=== PATIENT | female | born 1980 | race Caucasian/White ===

== ENCOUNTER 2018-08-27 09:00 | Observation (INO) | payer BC, SELFPAY ==
[2018-08-27 09:13] VITALS: BMI 22.2
[2018-08-27 09:14] VITALS: BP 103/67; PULSE 73; RESP 18; TEMP 36.9; O2SAT 100
--- NOTE | 2018-08-27 09:48 | US_ITS ---
STUDY: ULTRASOUND TRANSVAGINAL CLINICAL: Female, 38 years old. Right ovarian cyst TECHNIQUE: Transvaginal COMPARISON: None FINDINGS: Normal uterine size measuring 10.4 x 7.4 x 5.5 cm in maximal craniocaudal dimension. There are no myometrial masses. Normal endometrial thickness measuring 7 mm. There are no endometrial masses, and there is no fluid in the endometrial cavity. Normal uterine cervix. Normal right ovary, measuring 7.2 x 5.6 x 4.1 cm. There is a cyst measuring 2 x 2 by 2.1 cm. There also appears to be a smaller complex cyst possibly hemorrhagic. Normal left ovary is not visualized status post hysterectomy. There is moderate free complex fluid in the pelvis. US/Pelvic (Non ) IMPRESSION: Small complex cyst in the right ovary which may be consistent with hemorrhagic cyst in association with complex fluid in the cul-de-sac possibly hemorrhagic. MRI would be useful for further evaluation if clinically warranted Status post left nephrectomy Electronically Signed: Marco Laguna MD at 16:25 EDT , Service support ,
[2018-08-27] MEDS: Dextrose 5%-Lactated Ringers 1,000 ML 125 ML IV (10:02)
[2018-08-27] MEDS: Acetaminophen 500 MG Tablet 1000 MG PO (10:02)
--- NOTE | 2018-08-27 10:15 | PCM.HP.STD ---
Problem List (1) Hemoperitoneum, nontraumatic Status: Acute History of Present Illness Date of Admission: 08/27/18 Chief Complaint: Abdominal pain The patient is a 38 year old F [with sudden onset of abdominal pain at 4pm yesterday. Pain accompanied by near syncopal episodes, nausea, and vomiting. LMP mid July. HCG testing negative at [facility]. Past Medical History Allergies No Known Allergies Allergy (Verified 08/27/18 09:18) Home Medications: Ambulatory Orders Medication Instructions Recorded Chromium/Herbal Complex No.238 1 each PO DAILY 08/27/18 [Green Tea Caplet] Ciprofloxacin HCl 500 mg PO BID 08/27/18 Cranberry 500 mg PO DAILY 08/27/18 Surgical History: - - oophorectomy for ovarian torsion age 14 Psychiatric History: No pertinent psych hx VP CARDIOVASCULAR History: - - regular menses, one early loss, oophorectomy age 14 due to ovarina torsion Lives: Spouse/ Significant Other Smoking Status: Never smoker Alcohol: None Drugs: None - *Family History Maternal History Items: No pertinent history Paternal History Items: No pertinent history Review of Systems Constitutional: Denies: Chills, Fever, Malaise Eyes: Denies: Blurred vision Cardiovascular: Reports: Syncope - near with painful spasms. Denies: Chest Pain, Chest Pressure, Chest Tightness, Edema Respiratory: Denies: Cough, Shortness of Breath, Shortness of breath upon exertion, Wheezing Gastrointestinal: Reports: Abdominal Pain - generalized including pelvis and upper abdomen, Nausea - with episodes of pain. Denies: Constipation, Diarrhea Gynecological: Denies: Breast symptoms, Vaginal bleeding Neurological: Denies: Blurred vision, Headaches Psychiatric: Denies: Anxiety, Depression Hematologic/ Lymphatic: Reports: Anemia - not in past but current VTE Information - Inpt Only VTE Present on Admission: No VTE Mechan Device Prophylaxis: None VTE Pharm Prophylaxis ordered?: No Reason prophylaxis not ordered:: Treatment Not Indicated Patient Problems: Active and Suspected Problems Hemoperitoneum, nontraumatic (Acute) Subjective: Appears uncomfortable sitting upright in bed to discomfort of lying down Objective: Afeb VSS - Physical Exam General: Alert, Oriented x3, Cooperative HEENT: Normocephalic Oral: Moist Mucosa Lungs: Clear to auscultation, Normal air movement Cardiovascular: Regular rate, Regular Rhythm Abdomen: Non-Distended, Passing Flatus, Guarding, Tender - generalized Extremities: No edema Skin: No rashes Neurological: Neuro grossly intact Psych/Mental Status: Normal Affect Vital Signs Temp Pulse Resp BP Pulse Ox 98.5 F 73 18 103/67 100 08/27/18 09:14 08/27/18 09:14 08/27/18 09:14 08/27/18 09:14 08/27/18 09:14 Oxygen Delivery Method Room Air Weight: 121 lb 7.595 oz Body Mass Index (BMI) 22.2 Assessment/Plan All Active Problems Hemoperitoneum, nontraumatic (Acute) CT scan with likely hemoperitoneum with anemia and pain with possible ruptured corpus luteum cyst. Will admit for serial hgb levels to assess for further bleeding. Will treat pain with narcotics for now and consider antiinflammatories once results of US return. Pelvic US to better assess ovarian cyst and extent of hemoperitoneum. May need exploratory laparoscopy for evacuation of hemoperitoneum.
[2018-08-27] MEDS: HYDROmorphone 1 MG/ML Syringe IV (10:58)
[2018-08-27] MEDS: Ondansetron 4 MG/2 ML Vial IV (10:59)
[2018-08-27] MEDS: 0.9% NaCl Peripheral Flush Adult/Peds IV (10:59)
[2018-08-27 11:28] LABS: Absolute Lymphocyte Count 1.13 X10^3/ul (0.83-4.51); Absolute Neutrophil Count 8.3 X10^3/uL (2.0-7.7); Basophil# 0.02 X10^3/uL; Basophil% 0.2 % (0-1); Hematocrit 25.7 % (37-47); Hemoglobin 8.5 g/dl (12.0-15.0); Lymphocyte # 1.13 X10^3/ul (4.0); Lymphocyte % 11.4 % (19-41); Mean Corp Hgb Conc 33.1 g/gl (32-36); Mean Corpuscular Hgb 28.6 pg (27.0-32.0); Mean Corpuscular Volume 86.5 fL (81-99); Mean Platelet Vol. 9.5 fl (6.2-12.0); Monocyte# 0.45 X10^3/uL; Monocyte% 4.6 % (0-10); Neutrophil # 8.27 X10^3/uL (2.7-7.7); Neutrophil % 83.8 % (47-70); Platelet Count 189 K/mm3 (150-450); RBC Distribution Width CV 12.9 % (11.6-14.6); RBC Distribution Width SD 41.2 fl (35.1-43.9); Red Blood Count 2.97 M/mm3 (4.2-5.4); White Blood Count 9.9 K/mm3 (4.4-11.0)
[2018-08-27 11:29] LABS: POSITIVE COUNT NO; POSITIVE DIFFERENTIAL NO; POSITIVE MORPHOLOGY NO
[2018-08-27 11:53] LABS: hCG Titer Quant., Serum < 1 mIU/mL (<9 non-preg)
[2018-08-27 14:02] VITALS: BP 97/67; PULSE 70; RESP 18; TEMP 37.4; O2SAT 99
[2018-08-27] MEDS: Ciprofloxacin 500 MG Tablet PO ×2 (14:05→21:46)
--- NOTE | 2018-08-27 15:26 | US_ITS ---
STUDY: ULTRASOUND TRANSVAGINAL CLINICAL: Female, 38 years old. Right ovarian cyst TECHNIQUE: Transvaginal COMPARISON: None FINDINGS: Normal uterine size measuring 10.4 x 7.4 x 5.5 cm in maximal craniocaudal dimension. There are no myometrial masses. Normal endometrial thickness measuring 7 mm. There are no endometrial masses, and there is no fluid in the endometrial cavity. Normal uterine cervix. Normal right ovary, measuring 7.2 x 5.6 x 4.1 cm. There is a cyst measuring 2 x 2 by 2.1 cm. There also appears to be a smaller complex cyst possibly hemorrhagic. Normal left ovary is not visualized status post hysterectomy. There is moderate free complex fluid in the pelvis. US/Transvaginal Non- IMPRESSION: Small complex cyst in the right ovary which may be consistent with hemorrhagic cyst in association with complex fluid in the cul-de-sac possibly hemorrhagic. MRI would be useful for further evaluation if clinically warranted Status post left nephrectomy Electronically Signed: Marco Laguna MD at 16:25 EDT , Service support ,
[2018-08-27] MEDS: oxyCODONE 5 MG Tablet PO (16:24)
[2018-08-27] MEDS: Dextrose 5%-Lactated Ringers 1,000 ML 50 ML IV (20:10)
[2018-08-27 20:12] VITALS: BP 96/58; PULSE 86; RESP 18; TEMP 36.8; O2SAT 98
[2018-08-28 00:32] VITALS: BP 91/53; PULSE 87; RESP 16; TEMP 37; O2SAT 98
[2018-08-28 04:55] VITALS: BP 95/57; PULSE 94; RESP 18; TEMP 36.8; O2SAT 97
[2018-08-28 06:21] LABS: Absolute Lymphocyte Count 1.75 X10^3/ul (0.83-4.51); Absolute Neutrophil Count 4.5 X10^3/uL (2.0-7.7); Basophil# 0.01 X10^3/uL; Basophil% 0.1 % (0-1); Eosinophil# 0.06 X10^3/uL; Eosinophils% 0.9 % (0-5); Hematocrit 24.3 % (37-47); Hemoglobin 7.8 g/dl (12.0-15.0); Lymphocyte # 1.75 X10^3/ul (4.0); Lymphocyte % 25.5 % (19-41); Mean Corp Hgb Conc 32.1 g/gl (32-36); Mean Corpuscular Hgb 29.1 pg (27.0-32.0); Mean Corpuscular Volume 90.7 fL (81-99); Mean Platelet Vol. 10.5 fl (6.2-12.0); Monocyte# 0.55 X10^3/uL; Neutrophil # 4.48 X10^3/uL (2.7-7.7); Neutrophil % 65.4 % (47-70); Platelet Count 178 K/mm3 (150-450); RBC Distribution Width CV 12.5 % (11.6-14.6); RBC Distribution Width SD 40.4 fl (35.1-43.9); Red Blood Count 2.68 M/mm3 (4.2-5.4); White Blood Count 6.9 K/mm3 (4.4-11.0)
[2018-08-28 06:23] LABS: POSITIVE COUNT NO; POSITIVE DIFFERENTIAL NO; POSITIVE MORPHOLOGY NO
--- NOTE | 2018-08-28 07:40 | PCM.PN.OB ---
Patient Problems: Active and Suspected Problems Hemoperitoneum, nontraumatic (Acute) Subjective: Pain better this morning with more sense of soreness and fullness. Able to tolerate PO. Objective: Afeb VSS Hgb relatively stable at 7.8 today. - Physical Exam General: Alert, Oriented x3, Cooperative Lungs: Clear to auscultation, Normal air movement Cardiovascular: Regular rate, Regular Rhythm Abdomen: Soft, Non-Distended, - - Mild tenderness on exam but no guarding Extremities: No edema Skin: No rashes Neurological: Neuro grossly intact Psych/Mental Status: Normal Affect Vital Signs Temp Pulse Resp BP Pulse Ox 98.3 F 94 18 95/57 L 97 08/28/18 04:55 08/28/18 04:55 08/28/18 04:55 08/28/18 04:55 08/28/18 04:55 Oxygen Delivery Method Room Air Weight: 121 lb 7.595 oz Body Mass Index (BMI) 22.2 Intake and Output for Last 24 Hours 08/26/18 08/27/18 08/28/18 23:59 23:59 23:59 Intake Total 2067 1245 / 1245 Output Total 1600 / 1600 Balance 2067 -355 / -355 Laboratory Tests Past 24 Hrs 08/27/18 08/27/18 08/27/18 11:14 11:14 11:14 WBC 9.9 RBC 2.97 L Hgb 8.5 L Hct 25.7 L MCV 86.5 MCH 28.6 MCHC 33.1 RDW 12.9 RDW Differential 41.2 Plt Count 189 MPV 9.5 Immature Gran % (Auto) 0.000 Neut % (Auto) 83.8 H Lymph % (Auto) 11.4 L [place] % (Auto) 4.6 Eos % (Auto) 0.0 Baso % (Auto) 0.2 Absolute Neuts (auto) 8.3 H Absolute Lymphs (auto) 1.13 Total Counted Not Reportable HCG, Quant < 1 Blood Type O POSITIVE Antibody Screen NEGATIVE 08/28/18 05:52 WBC 6.9 RBC 2.68 L Hgb 7.8 L Hct 24.3 L MCV 90.7 MCH 29.1 MCHC 32.1 RDW 12.5 RDW Differential 40.4 Plt Count 178 MPV 10.5 Immature Gran % (Auto) 0.100 Neut % (Auto) 65.4 Lymph % (Auto) 25.5 [place] % (Auto) 8.0 Eos % (Auto) 0.9 Baso % (Auto) 0.1 Absolute Neuts (auto) 4.5 Absolute Lymphs (auto) 1.75 Total Counted Not Reportable HCG, Quant Blood Type Antibody Screen Medical Necessity - Tobacco Use Smoking Status: Never smoker Assessment/Plan All Active Problems Hemoperitoneum, nontraumatic (Acute) Ruptured hemorrhagic ovarian cyst. Hgb stable with normal BP HR . Pain much better today. Discussed low hgb and indications for return to the hospital or office. Will discharge home with followup appt in my office in 2 weeks. Oxycodone and ibuprofen for pain. Will start on supplemental iron.
--- NOTE | 2018-08-28 07:49 | DCINST_ITS ---
- Discharge Diagnoses Current Active Problems: Current Active and Chronic Problems Hemoperitoneum, nontraumatic (Acute) You will use the following diet at home:: Regular Your food should be the consistency of: Regular Discharge Activity: Return to Normal Activity, May Drive, May not drive while taking narcotic pain medications., May Shower, May Take a Tub Bath Return to work on:: 09/01/18 May shower in (days): 0 May resume sexual activity in: 2 weeks Call your doctor if your incision/area has: Increased Pain/ Swelling Call your doctor if you observe: Fever of 101 or Higher, Inability to urinate, Inability to have a bowel movement, Using more than one pad per hour, Shortness of breath, Dizziness, Fainting spells, Chest pain, Calf discomfort, Uncontrolled pain Allergies/Adverse Reactions: Allergies No Known Allergies Allergy (Verified 08/27/18 09:18) Medications to take at Discharge Chromium/Herbal Complex No.238 [Green Tea Caplet] 1 each PO DAILY 08/27/18 Ciprofloxacin HCl 500 mg PO BID 08/27/18 Cranberry 500 mg PO DAILY 08/27/18 Ciprofloxacin [Cipro] 500 mg PO BID tablet 08/28/18 Ferrous Gluconate 325 mg PO BIDCM #60 tab 08/28/18 Ibuprofen 600 mg PO 4X/DAY #30 tab 08/28/18 Oxycodone [Oxyir] 5 mg PO Q4H PRN PRN 7 Days #20 tab 08/28/18 The following prescriptions were given: Oxycodone [Oxyir] 5 mg PO Q4H PRN PRN 7 Days #20 tab PRN Reason: Severe Pain (6-08/27) Ferrous Gluconate 325 mg PO BIDCM #60 tab Ibuprofen 600 mg PO 4X/DAY #30 tab Primary Care Physician: Natalia Cooper [Primary Care Provider] - Test Results: Test results from this visit will be discussed in further detail at your follow- up appointment, if applicable. Please Follow Up With: Henrik Carroll MD - [phone] When: call to schedule appt for two weeks Proposed Discharge Date: 08/28/18
--- NOTE | 2018-08-28 07:53 | DS.PCM_ITS ---
Discharge Date and Diagnosis - Problem List Patient Problems: Active and Suspected Problems Hemoperitoneum, nontraumatic (Acute) Date of Admission: 08/27/18 Date of Discharge: 08/28/18 - Primary Discharge Diagnosis Active and Suspected Problems Hemoperitoneum, nontraumatic (Acute), Hemorrhagic ovarian cyst Hospital Course and Treatment Operations: None Procedures: - - US Summary of Care Provided: The patient is a 38 year old F [admitted with abdominal pain and CT scan showing likely hemoperitoneum. US confirmed diagnosis. Hgb stable during hospital stay. Anemia present. Pain lessoned over the course of 24 hours. Did well on low doses of oxycodone and tylenol. She was discharged home with warnings on HD #2.] Patient Problems: Active and Suspected Problems Hemoperitoneum, nontraumatic (Acute) - Physical Exam Vital Signs Temp Pulse Resp BP Pulse Ox 98.3 F 94 18 95/57 L 97 08/28/18 04:55 08/28/18 04:55 08/28/18 04:55 08/28/18 04:55 08/28/18 04:55 Oxygen Delivery Method Room Air Weight: 121 lb 7.595 oz Body Mass Index (BMI) 22.2 Intake and Output for Last 24 Hours 08/26/18 08/27/18 08/28/18 23:59 23:59 23:59 Intake Total 2067 1245 / 1245 Output Total 1600 / 1600 Balance 2067 -355 / -355 Laboratory Tests Past 24 Hrs 08/27/18 08/27/18 08/27/18 11:14 11:14 11:14 WBC 9.9 RBC 2.97 L Hgb 8.5 L Hct 25.7 L MCV 86.5 MCH 28.6 MCHC 33.1 RDW 12.9 RDW Differential 41.2 Plt Count 189 MPV 9.5 Immature Gran % (Auto) 0.000 Neut % (Auto) 83.8 H Lymph % (Auto) 11.4 L [place] % (Auto) 4.6 Eos % (Auto) 0.0 Baso % (Auto) 0.2 Absolute Neuts (auto) 8.3 H Absolute Lymphs (auto) 1.13 Total Counted Not Reportable HCG, Quant < 1 Blood Type O POSITIVE Antibody Screen NEGATIVE 08/28/18 05:52 WBC 6.9 RBC 2.68 L Hgb 7.8 L Hct 24.3 L MCV 90.7 MCH 29.1 MCHC 32.1 RDW 12.5 RDW Differential 40.4 Plt Count 178 MPV 10.5 Immature Gran % (Auto) 0.100 Neut % (Auto) 65.4 Lymph % (Auto) 25.5 [place] % (Auto) 8.0 Eos % (Auto) 0.9 Baso % (Auto) 0.1 Absolute Neuts (auto) 4.5 Absolute Lymphs (auto) 1.75 Total Counted Not Reportable HCG, Quant Blood Type Antibody Screen Discharge Diet: No Restrictions Discharge Activity: Return to Normal Activity, May Drive, May not drive while taking narcotic pain medications., May Shower, May Take a Tub Bath Return to work on:: 09/01/18 May shower in (days): 0 May resume sexual activity in: 2 weeks Call your doctor if your incision/area has: Increased Pain/ Swelling Call your doctor if you observe: Fever of 101 or Higher, Inability to urinate, Inability to have a bowel movement, Using more than one pad per hour, Shortness of breath, Dizziness, Fainting spells, Chest pain, Calf discomfort, Uncontrolled pain Home Medications: Medications to take at Discharge Chromium/Herbal Complex No.238 [Green Tea Caplet] 1 each PO DAILY 08/27/18 Ciprofloxacin HCl 500 mg PO BID 08/27/18 Cranberry 500 mg PO DAILY 08/27/18 Ciprofloxacin [Cipro] 500 mg PO BID tablet 08/28/18 Ferrous Gluconate 325 mg PO BIDCM #60 tab 08/28/18 Ibuprofen 600 mg PO 4X/DAY #30 tab 08/28/18 Oxycodone [Oxyir] 5 mg PO Q4H PRN PRN 7 Days #20 tab 08/28/18 Following Prescrptions Were Given to Patient: Oxycodone [Oxyir] 5 mg PO Q4H PRN PRN 7 Days #20 tab PRN Reason: Severe Pain (-08/27) Ferrous Gluconate 325 mg PO BIDCM #60 tab Ibuprofen 600 mg PO 4X/DAY #30 tab Primary Care Physician: Natalia Cooper [Primary Care Provider] - Please Follow Up With: Henrik Carroll MD - [phone] When: call to schedule appt for two weeks Medical Necessity - Tobacco Use Smoking Status: Never smoker Meaningful Use Info Meaningful Use Diagnoses (Choose all that apply): None applicable
[2018-08-28 08:50] VITALS: BP 94/56; PULSE 86; RESP 16; TEMP 37.1; O2SAT 98
== END 2018-08-28 09:15 | disposition home or self-care (01) ==
PROVIDERS: Obstetrics & Gynecology; Admitting Provider Obstetrics & Gynecology; Family Provider Nurse Practitioner Adult Health; PCP Nurse Practitioner Adult Health; Referring Provider Obstetrics & Gynecology; Visit Provider Obstetrics & Gynecology
DX: K66.1 Hemoperitoneum (principal); N83.201 Unspecified ovarian cyst, right side; D64.9 Anemia, unspecified
CPT/HCPCS: 36415; 76830; 76856; 84702; 85025; 86850; 86900; 96374; 96375; 99218; A4216; G0378; G0379; J2405

== ENCOUNTER → 2018-09-11 14:22 | Outpatient (CLI) | payer BC, SELFPAY ==
[2018-09-11 15:53] LABS: Hematocrit 34.6 % (37-47); Mean Corp Hgb Conc 31.8 g/gl (32-36); Mean Corpuscular Hgb 28.7 pg (27.0-32.0); Mean Corpuscular Volume 90.3 fL (81-99); Mean Platelet Vol. 10.4 fl (6.2-12.0); Platelet Count 301 K/mm3 (150-450); RBC Distribution Width CV 13.2 % (11.6-14.6); RBC Distribution Width SD 43.2 fl (35.1-43.9); Red Blood Count 3.83 M/mm3 (4.2-5.4); White Blood Count 6.8 K/mm3 (4.4-11.0)
[2018-09-11 15:57] LABS: Scan Indicated on CBC? Y/N NO
== END ==
PROVIDERS: Visit Provider Obstetrics & Gynecology
DX: D50.0 Iron deficiency anemia secondary to blood loss (chronic) (principal)
CPT/HCPCS: 36415; 85027

== ENCOUNTER 2019-10-04 10:54 | Observation (INO) | payer BC, SELFPAY ==
[2019-10-04 10:55] VITALS: BP 89/59; PULSE 112; RESP 18; TEMP 36.4; O2SAT 97; BMI 21.9
--- NOTE | 2019-10-04 11:14 | EKG12_ITS ---
Test Reason : SYNCOPE Blood Pressure : / mmHG Vent. Rate : 091 BPM Atrial Rate : 091 BPM P-R Int : 130 ms QRS Dur : 070 ms QT Int : 370 ms P-R-T Axes : 070 058 048 degrees QTc Int : 455 ms Normal sinus rhythm with sinus arrhythmia Normal ECG Confirmed by GERALDINE MATTHEWS, HOLLEY ([id number]), newspaper editor managing VINCENZO PASCUAL ([id number]) on 10/06/2019 11:41:13 AM Referred By: Gracie Canela Confirmed By:HOLLEY CHANDLER MD
--- NOTE | 2019-10-04 11:19 | NURSING ---
NO OLD EKGS
[2019-10-04] MEDS: fentaNYL 100 MCG/2 ML Ampul 25 MCG IV (11:38)
[2019-10-04] MEDS: 0.9% Normal Saline 1,000 ML 1000 ML IV (11:38)
[2019-10-04 11:40] LABS: Internal QC Validated? YES +Cl - CLEAR BKGD; Pregnancy, Serum, hCG Quali. NEGATIVE Negative
--- NOTE | 2019-10-04 11:40 | CT_ITS ---
We are attempting to reach an attending provider to discuss findings. An addendum with communication details will be sent when the communication is complete. STUDY: CT ABDOMEN AND PELVIS WITHOUT CONTRAST REASON FOR EXAM: Female, 39 years old. NAUSE/SYNCOPE,ABD PAIN. RADIATION DOSAGE (If Supplied By Facility): CTDIvol = ( 6.10 ) mGy, DLP = ( 288.06 ) mGycm TECHNIQUE: Transaxial images were obtained from the dome of the diaphragm to the symphysis pubis without oral contrast, and without intravenous contrast. Sagittal and coronal images were reconstructed. Individualized dose optimization techniques were used for this CT. COMPARISON: None FINDINGS: The visualized lung bases are unremarkable. The visualized portions of the heart are within normal limits. There is decreased attenuation of the liver consistent with steatosis. There is moderate amount fluid surrounding the liver, spleen and within pelvis. Some of this fluid is hyperdense in particular along the dependent pelvis and anterior abdomen. There is a mixed attenuation and predominantly hyperdense mass at the right pelvic adjacent to the uterus (axial image #128 series 2). Normal gallbladder and extrahepatic biliary system. Normal spleen. Normal pancreas. Normal bilateral adrenal glands. Normal right kidney. Normal left kidney. Normal visualized stomach. Normal small intestine. Normal colon. The appendix is visualized and appears normal. Normal abdominal aorta. Normal inferior vena cava. Normal retroperitoneum. Normal urinary bladder. Normal abdominal wall. Normal osseous structures. CT/Abdomen/Pelvis without Cont IMPRESSION: Mild hyperdense free fluid. Findings are consistent with intraperitoneal hemorrhage. Right pelvic mass. Electronically Signed: Rubin Jay MD at 13:00 EST Tel , Service support ,
[2019-10-04 11:47] LABS: AST(SGOT) 17 U/L (15-37); Alanine Aminotransfer ALT/SGPT 22 U/L (13-56); Albumin, Serum 3.8 g/dL (3.2-5.0); Alkaline Phosphatase 56 U/L (45-117); Anion Gap 10 (5-15); BUN 11 mg/dL (7-18); BUN/Creat Ratio 12.7 RATIO (10-20); Calcium,Total 8.9 mg/dL (8.5-10.1); Chloride 108 mmol/L (98-107); Creatinine, Serum 0.86 mg/dL (0.55-1.02); EST Glomerular Filtration Rate 77 mL/min (>60); Est Glom Filt Rate - Afr Amer 93 mL/min (>60); Estimated Creatinine Clearance 68.09 ml/min; Globulin 3.7 g/dL (2.2-4.2); Glucose 127 mg/dL (74-106); Potassium 4.4 mmol/L (3.5-5.1); Protein, Total 7.5 g/dL (6.4-8.2); Sodium Level 142 mmol/L (136-145)
[2019-10-04 11:55] LABS: Lipase 63 U/L (73-393); Prothrombin Time (Protime)PT. 13.2 SECONDS (11.7-14.9)
--- NOTE | 2019-10-04 12:13 | ED.DCSUM_ITS ---
History of Present Illness Informant: Patient Narrative: 1-year-old female presents with abdominal pain. Patient states that last night she began to have abdominal pain. Describes this sudden onset. Initially was in her lower abdomen and then started having worsening cramping pain in her upper abdomen. States that today she did have an episode of syncope when she fell and lost consciousness for short period of time. Patient's states that she did then quickly regained consciousness. Patient has a history of a left ovarian torsion that was removed in her teens. States that approximate year ago she had similar symptoms and was found to have a hemorrhagic cyst on her right ovary. Was observed at [facility] and then discharged. States that symptoms feel very similar to this. Last menstrual period was 09/13/2019 <Mick Gambino - Last Filed: 10/04/19 16:10> Onset: Yesterday Context: Gradual Onset Timing: Waxes and wanes Current Severity: Moderate Maximum Severity: Moderate <Carol Springer - Last Filed: 10/04/19 16:48> Chief Complaint: Abd Pain Past Medical History Surgical History: - - oophorectomy for ovarian torsion age 14 Smoking Status: Never smoker - Family History Maternal Family History: Reports: No pertinent history Paternal Family History: Reports: No pertinent history <Mick Gambino - Last Filed: 10/04/19 16:10> Prior records reviewed: Yes Past Medical History: - - Prior ovarian torsion Lives: Spouse/ Significant Other <Carol Springer - Last Filed: 10/04/19 16:48> - Allergies and Home Meds Allergies/Adverse Reactions: Allergies No Known Allergies Allergy (Verified 10/04/19 10:56) Review of Systems General: Denies: Chills, Fever, Sweats Eyes: Denies: Visual changes - bilaterally, Diplopia Cardiovascular: Denies: Chest pain, Palpitations Respiratory: Denies: Dyspnea, Cough, Dyspnea on exertion Gastrointestinal: Reports: Abdominal pain. Denies: Nausea, Vomiting, Diarrhea, Melena, Hematochezia Genitourinary: Denies: Dysuria, Hematuria, Frequency Musculoskeletal: Denies: Back pain, Extremity Pain Skin: Denies: Rash, Wounds Neurological: Denies: Headache, Weakness, Numbness <Mick Gambino - Last Filed: 10/04/19 16:10> Physical Exam Vital Signs/Narrative: Vital Signs Temp Pulse Resp BP Pulse Ox 10/04/19 10:55 97.5 F L 112 H 18 89/59 L 97 General: Well nourished, Well developed, No Acute Distress Head: Normocephalic, Atraumatic Eyes: Perrl, EOMI. Negative for: Pale conjunctiva ENT: Moist mucous membranes, No rhinorrhea Neck: Supple, Nontender Cardiovascular: Regular rate, Regular rhythm, No murmurs Respiratory: No distress, CTA bilaterally, Chest nontender Abdomen: Soft, Normal bowel sounds, - - His abdominal tenderness. Most pr ominent in the lower quadrants and bilateral upper quadrants. Back: Nontender, Normal Inspection Extremities: Nontender, No edema Skin: Normal color, No rash Neurological: Alert, Oriented x3, Cranial nerves II-XII grossly intact, Normal Strength, Normal Sensation Psychological: Normal affect, Normal Mood <Mick Gambino - Last Filed: 10/04/19 16:10> Inital Vital Signs reviewed: Yes <Carol Springer - Last Filed: 10/04/19 16:48> Diagnostic/Tx/Re-eval - EKG Initial EKG Interpretation: Sinus Rhythm - This rhythm at 91 bpm. KS interval 130, QRS 70, QTc 455. Normal axis. No ischemic changes. - Medical Decision Making Evaluated after syncope and abdominal pain. Initial concern will be for ruptured ectopic or ruptured hemorrhagic cyst. Serum negative. Bedside ultrasound positive for free fluid in the right upper quadrant. Patient given IV fluids, fentanyl for pain. Patient's vitals normalized when sitting in the ED cot. Labs unremarkable except for a mild anemia of 10.8. CT showed mild to moderate free fluid in the abdomen with likely hemorrhagic cyst in the right lower quadrant. I discussed the findings with the radiologist. Given patient's hemorrhagic cyst discussed case with who accepted the patient for admission to monitor. Impression: 1. Intra-abdominal free fluid, likely hemorrhagic cyst 2. Syncope 3. Blood loss anemia <Mick Gambino - Last Filed: 10/04/19 16:10> Impressions Abdomen/Pelvis CT 10/04/19 11:40 IMPRESSION: Mild hyperdense free fluid. Findings are consistent with intraperitoneal hemorrhage. Right pelvic mass. Electronically Signed: Rubin Jay MD at 13:00 EST Tel , Service support , ADDENDUM: 10/04/19 1350 IMPRESSION: Mild hyperdense free fluid. Findings are consistent with intraperitoneal hemorrhage. Right pelvic mass. N.B. : The above information has been verbally conveyed by Rubin Jay MD to Dr. Gambino;[phone], on 10/04/2019 13:43:16 (ET). Electronically Signed: Rubin Jay MD at 13:00 EST Tel , Service support , 10/04/19 11:40 CT Abd [Abdomen/Pelvis without Cont] [CT] Stat Laboratory Results 10/04/19 10/04/19 10/04/19 11:10 11:10 11:10 WBC RBC Hgb Hct MCV MCH MCHC RDW Std Deviation RDW Coeff of Hieu Plt Count MPV Immature Gran % (Auto) Neut % (Auto) Lymph % (Auto) [place]berry % (Auto) Eos % (Auto) Baso % (Auto) Absolute Neuts (auto) Absolute Lymphs (auto) Nucleated RBC % PT 13.2 INR 1.0 Sodium 142 Potassium 4.4 Chloride 108 H Carbon Dioxide 24.0 Anion Gap 10 BUN 11 Creatinine 0.86 Estim Creat Clear Calc 68.09 Est GFR (MDRD) Af Amer 93 Est GFR (MDRD) Non-Af 77 BUN/Creatinine Ratio 12.7 Glucose 127 H Calcium 8.9 Total Bilirubin 0.30 AST 17 ALT 22 Alkaline Phosphatase 56 Total Protein 7.5 Albumin 3.8 Globulin 3.7 Albumin/Globulin Ratio 1.0 Lipase Serum , Qual NEGATIVE Urine Color Urine Clarity Urine pH Ur Specific [place]ork Urine Protein Urine Glucose (UA) Urine Ketones Urine Occult Blood Urine Nitrite Urine Bilirubin Urine Urobilinogen Ur Leukocyte Esterase Urine RBC Urine WBC Ur Squamous Epith Cells Urine Bacteria Hyaline Casts Urine Mucus Blood Type Antibody Screen 10/04/19 10/04/19 10/04/19 11:10 11:10 11:10 WBC 14.7 H RBC 3.74 L Hgb 10.6 L Hct 33.3 L MCV 89.0 MCH 28.3 MCHC 31.8 L RDW Std Deviation 41.8 RDW Coeff of Hieu 12.8 Plt Count 332 MPV 9.9 Immature Gran % (Auto) 0.600 Neut % (Auto) 88.8 H Lymph % (Auto) 7.9 L Newberry % (Auto) 2.4 Eos % (Auto) 0.0 Baso % (Auto) 0.3 Absolute Neuts (auto) 13.1 H Absolute Lymphs (auto) 1.16 Nucleated RBC % 0 PT INR Sodium Potassium Chloride Carbon Dioxide Anion Gap BUN Creatinine Estim Creat Clear Calc Est GFR (MDRD) Af Amer Est GFR (MDRD) Non-Af BUN/Creatinine Ratio Glucose Calcium Total Bilirubin AST ALT Alkaline Phosphatase Total Protein Albumin Globulin Albumin/Globulin Ratio Lipase 63 L Serum , Qual Urine Color Urine Clarity Urine pH Ur Specific [place] Urine Protein Urine Glucose (UA) Urine Ketones Urine Occult Blood Urine Nitrite Urine Bilirubin Urine Urobilinogen Ur Leukocyte Esterase Urine RBC Urine WBC Ur Squamous Epith Cells Urine Bacteria Hyaline Casts Urine Mucus Blood Type O POSITIVE Antibody Screen NEGATIVE 10/04/19 12:35 WBC RBC Hgb Hct MCV MCH MCHC RDW Std Deviation RDW Coeff of Hieu Plt Count MPV Immature Gran % (Auto) Neut % (Auto) Lymph % (Auto) Newberry % (Auto) Eos % (Auto) Baso % (Auto) Absolute Neuts (auto) Absolute Lymphs (auto) Nucleated RBC % PT INR Sodium Potassium Chloride Carbon Dioxide Anion Gap BUN Creatinine Estim Creat Clear Calc Est GFR (MDRD) Af Amer Est GFR (MDRD) Non-Af BUN/Creatinine Ratio Glucose Calcium Total Bilirubin AST ALT Alkaline Phosphatase Total Protein Albumin Globulin Albumin/Globulin Ratio Lipase Serum , Qual Urine Color Yellow Urine Clarity Sl. Cloudy Urine pH 6.0 Ur Specific [place]ork 1.020 Urine Protein 30 H Urine Glucose (UA) Normal Urine Ketones 50 H Urine Occult Blood 10 H Urine Nitrite Positive H Urine Bilirubin Negative Urine Urobilinogen 1 H Ur Leukocyte Esterase 100 H Urine RBC 0 SEEN Urine WBC 0-5 SEEN Ur Squamous Epith Cells 0-5 SEEN Urine Bacteria 3+ Hyaline Casts 0-5 SEEN Urine Mucus 1+ Blood Type Antibody Screen - Medical Decision Making Patient seen and evaluated with resident. Patient is a 39-year-old female with history of left ovarian torsion. She was admitted last year with a hemorrhagic ovarian cyst on the right. Patient developed pain in the lower abdomen last evening. She did have a brief syncopal episode this morning. On arrival to the emergency room patient was hypotensive and tachycardic. Was placed in the exam room and lying in bed vital signs did improve. She denies vomiting or diarrhea. She denies fever. Patient lying in bed no acute distress. Head and neck examination unremarkable. Heart regular rate and rhythm with heart rate in the 80s and 90s. Lung sounds are clear. Abdomen is soft with tenderness in the lower abdomen. There is no guarding at the time of my exam. Extremity examination is unremarkable. Skin examination was no rash or lesions. Bedside ultrasound was performed after the patient arrived and did reveal evidence of free fluid in the pelvis. CT flank was quickly obtained to evaluate for volume of blood. There is evidence of a right adnexal mass, may be hemorrhagic cyst. There is free fluid noted in the pelvis. Patient was discussed with BIOASSAYIST and patient is admitted for further evaluation and observation. <Carol Springer - Last Filed: 10/04/19 16:48> ED Disposition <Mick Gambino - Last Filed: 10/04/19 16:10> <Carol Springer - Last Filed: 10/04/19 16:48> - Plan for ED Patient: Disposition: Acute Care Hospital [facility] Diagnosis: Hemoperitoneum, nontraumatic
[2019-10-04 12:30] VITALS: BP 146/102; PULSE 124; RESP 22; O2SAT 98
[2019-10-04 12:32] LABS: Absolute Lymphocyte Count 1.16 X10^3/uL (0.83-4.51); Absolute Neutrophil Count 13.1 X10^3/uL (2.0-7.7); Basophil# 0.05 X10^3/uL; Basophil% 0.3 % (0-1); Hematocrit 33.3 % (37-47); Hemoglobin 10.6 g/dL (12.0-15.0); Lymphocyte # 1.16 X10^3/ul (4.0); Lymphocyte % 7.9 % (19-41); Mean Corp Hgb Conc 31.8 g/dL (32-36); Mean Corpuscular Hgb 28.3 pg (27.0-32.0); Mean Platelet Vol. 9.9 fl (6.2-12.0); Monocyte# 0.35 X10^3/uL; Monocyte% 2.4 % (0-10); NRBC Flagged by Analyzer 0 % (0-5); Neutrophil # 13.06 X10^3/uL (2.7-7.7); Neutrophil % 88.8 % (47-70); Platelet Count 332 K/mm3 (150-450); RBC Distribution Width CV 12.8 % (11.6-14.6); RBC Distribution Width SD 41.8 fl (35.1-43.9); Red Blood Count 3.74 M/mm3 (4.2-5.4); White Blood Count 14.7 K/mm3 (4.4-11.0)
[2019-10-04 12:42] LABS: Red Blood Cells-Urine 0 SEEN /hpf (0-5)
[2019-10-04 12:43] LABS: Color, Urine Yellow (Yellow); Glucose, Dipstick Normal (Normal); Ketone-Dipstick 50 mg/dl (Negative); Leukocyte Esterase-Dipstick 100 /ul (Negative); Nitrite-Dipstick Positive (Negative); Occult Blood-Urine 10 /ul (Negative); Protein-Dipstick 30 mg/dl (Negative); Urine Bilirubin Dipstick Negative (Negative); Urine Clarity Sl. Cloudy (Clear); Urine Urobilinogen 1 mg/dl (Normal)
[2019-10-04 12:52] LABS: Bacteria 3+ /hpf (None Seen); Hyaline Cast 0-5 SEEN /lpf (0-5); Mucous, Urine 1+ /hpf (<or=2+); Squamous Epithelial Cells - UA 0-5 SEEN /hpf (5-10); White Blood Cells 0-5 SEEN /hpf (0-5)
--- NOTE | 2019-10-04 13:19 | PCM.HPOB.BLA ---
History and Physical Date of Admission: 10/04/19 On 10/04/2019, Carol Ennis, a 39 year old female 0 0 1 0 0, presented to [facility] emergency dept with CC of abdominal pain starting last night after sudden onset. Pain started in lower abdomen and now spread to upper abdomen also. Syncopal episode at home. She was observed in Oct 2018 in patient at [facility] for similar episode and then went home without surgery. She was offered OCP to suppress future cysts at this time. Declined. Will reconsider this via discussions with her while in hospital. States some intermittent sharp cramping pain in upper abdomen. Notes pressure in upper abdomen with palpation of lower abdomen. Tolerating clears, liquids, some inc in discomfort / cramping upper abdomen with trial of eating fruit. States next period due in about 10 d. Monthly periods. LMP 09/13/19 -- cycle day 21. ALLERGIES: No Known Allergies MEDICATIONS HISTORY: Current medications prescribed by our practice are: 1. none. REVIEW OF SYSTEMS: GENERAL - Denies fever, or chills SKIN - Denies skin changes EYES - Denies visual changes EARS - Denies difficulty hearing NOSE - Denies nasal congestion or bleeding MOUTH - Denies sore throat or difficulty swallowing NECK - Denies pain or swelling RESPIRATORY - Denies shortness of breath or wheezing CARDIOVASCULAR - Denies palpitations or chest pain GASTROINTESTINAL - Denies nausea, vomiting, diarrhea, constipation GENITOURINARY - Denies dysuria, frequency of urination, incontinence of urine MUSCULOSKELETAL - Denies joint or muscle pain NEUROLOGICAL - Denies localized numbness or weakness PSYCHIATRIC - Denies depression or anxiety ENDOCRINE - Denies heat or cold intolerance, weight loss or gain HEMATO-IMMUNOLOGIC - Denies excessive bleeding with cuts PAST HISTORY: Breast/Ovarian/Colon Cancers - Denies Infections - Chicken pox Illnesses - none History of Abnormal PAPS - NO Hospitalizations - SHORT STAY OBSERVATION Oct 2018 for hemorrhagic ovarian cyst. SURGICAL HISTORY: 1. Left Oophorectomy age 14 Torsion MENSTRUAL HISTORY: LMP Known?- Definite Amount/Duration - 5-6 days, Regularity - Regular, Frequency - monthly days, LMP - 09/13/19, Age Onset Menarche - 10 FAMILY HISTORY: Mother - Type 2 Diabetes; Paternal Grandparent - Type 2 Diabetes; Paternal Grandparent - Heart Attack; SOCIAL HISTORY: Alcohol Use - socially Smoking - denies smoking Employer - Self Illicit Drug Use - denies use of street drugs Sexual Activity - Residence - Lives w/ Spouse-Sig Other Name - Grover Ennis Spouse-Sig Other Occupation - [employer] for [employer] Spouse-Sig Other Phone No - [phone] Children Name(s) - none Control - had vasectomy PHYSICAL EXAMINATION Sinus Rhythm - at 91 bpm Pulse 90 BP 119/82 CONSTITUTIONAL - NAD, well nourished, and well developed HEENT - Normocephalic, PERRLA, EOMI. Appears pink. NECK - no nuchal rigidity LUNGS - regular rate and respiratory rhythm. ABDOMEN - tender to palpation lower abdomen, no rebound. EXTREMITIES - No edema or calf tenderness NEUROLOGICAL - Cranial nerves II-XII grossly intact PSYCHIATRIC - A and O to time, place, person, mood and affect ASSESSMENT: 1. 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 Anemia, presumed due to acute blood loss. PLAN BY DIAGNOSIS: 1. 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 No description of size of ovary or of Right adnexal mass/clot. Admit to [facility] for serial CBCs, and exams with consideration of surgery if indicated. L ovary surgically absent. Discussed R,B,A, of hormonal contraception (OCP, NuvaRing, Xulane, Nexplanon, Depo Provera) to reduce risk of future cysts She is considering options again. Also discussed option to remove R ovary, but not recommended due to age and need for hormones. Pelvic sono to evaluate adnexa further. Hold diet to clears as tolerated. Add antispasmodic for intermittent pain Advised will decide re surgery depending on her serial CBC and on pain control. The visit was approximately 20 minutes in length with most of the time spent in discussion and counseling. 2. Anemia, presumed due to acute blood loss. Iron bid Also with known fibroids, hx of chronic anemia 2/2 heavy periods.
[2019-10-04] MEDS: fentaNYL 100 MCG/2 ML Ampul 50 MCG IV (13:28)
[2019-10-04 13:32] VITALS: BP 124/81; PULSE 90; RESP 22; O2SAT 98
--- NOTE | 2019-10-04 13:34 | NURSING ---
MED SURG ANEMIA, HEMORRHAGIC CYST GERTRUDIS
[2019-10-04 14:06] VITALS: BMI 21.5; BMI 21.8
[2019-10-04 14:38] VITALS: BP 119/82; PULSE 90; RESP 18; TEMP 36.3; O2SAT 99
[2019-10-04] MEDS: oxyCODONE 5 MG Tablet 10 MG PO (14:48)
[2019-10-04] MEDS: 0.9% Normal Saline 1,000 ML 75 ML IV (15:58)
[2019-10-04] MEDS: Hyoscyamine Sulfate 0.125 MG Tablet PO (16:01)
[2019-10-04] MEDS: Ferrous Sulfate 325 MG Tablet PO (16:01)
[2019-10-04 17:45] LABS: Hematocrit 27.3 % (37-47); Mean Corpuscular Hgb 28.6 pg (27.0-32.0); Mean Corpuscular Volume 86.7 fL (81-99); Mean Platelet Vol. 9.9 fl (6.2-12.0); Platelet Count 262 K/mm3 (150-450); RBC Distribution Width CV 12.9 % (11.6-14.6); RBC Distribution Width SD 41.1 fl (35.1-43.9); Red Blood Count 3.15 M/mm3 (4.2-5.4)
[2019-10-04 18:02] VITALS: BP 123/79; PULSE 93; RESP 16; TEMP 36.5; O2SAT 100
[2019-10-04] MEDS: Acetaminophen 325 MG Tablet 650 MG PO (18:08)
[2019-10-04] MEDS: HYDROmorphone 0.5 MG/0.5 ML SYRINGE IV (18:59)
[2019-10-04] MEDS: 0.9% Saline Lock 10 ML Syringe IV (20:25)
[2019-10-04] MEDS: Ondansetron 4 MG/2 ML Vial IV (20:25)
[2019-10-04 20:30] VITALS: BP 147/91; PULSE 98; RESP 16; TEMP 36.8; O2SAT 97
[2019-10-04] MEDS: Famotidine 20 MG Tablet PO (21:25)
[2019-10-05] VITALS (12 sets, daily range): BP systolic 95–119; BP diastolic 58–75; PULSE 73–96; RESP 16–18; TEMP 36.4–37.2; O2SAT 93–100; BMI 21.8
[2019-10-05] MEDS: HYDROmorphone 1 MG/ML Syringe IV ×2 (03:04→20:02)
[2019-10-05] MEDS: 0.9% Normal Saline 1,000 ML 75 ML IV (04:52)
[2019-10-05 06:15] LABS: Absolute Lymphocyte Count 1.71 X10^3/uL (0.83-4.51); Absolute Neutrophil Count 6.9 X10^3/uL (2.0-7.7); Basophil# 0.04 X10^3/uL; Basophil% 0.4 % (0-1); Eosinophil# 0.01 X10^3/uL; Eosinophils% 0.1 % (0-5); Hematocrit 24.1 % (37-47); Hemoglobin 7.7 g/dL (12.0-15.0); Lymphocyte # 1.71 X10^3/ul (4.0); Lymphocyte % 18.1 % (19-41); Mean Corpuscular Hgb 28.1 pg (27.0-32.0); Mean Platelet Vol. 9.8 fl (6.2-12.0); Monocyte# 0.73 X10^3/uL; Monocyte% 7.7 % (0-10); NRBC Flagged by Analyzer 0 % (0-5); Neutrophil # 6.91 X10^3/uL (2.7-7.7); Neutrophil % 73.3 % (47-70); Platelet Count 224 K/mm3 (150-450); RBC Distribution Width SD 41.1 fl (35.1-43.9); Red Blood Count 2.74 M/mm3 (4.2-5.4); White Blood Count 9.4 K/mm3 (4.4-11.0)
[2019-10-05 06:37] LABS: Anion Gap 8 (5-15); BUN 10 mg/dL (7-18); Calcium,Total 8.1 mg/dL (8.5-10.1); Chloride 106 mmol/L (98-107); Creatinine, Serum 0.71 mg/dL (0.55-1.02); EST Glomerular Filtration Rate 96 mL/min (>60); Est Glom Filt Rate - Afr Amer 116 mL/min (>60); Estimated Creatinine Clearance 82.47 ml/min; Glucose 89 mg/dL (74-106); Potassium 3.6 mmol/L (3.5-5.1); Sodium Level 140 mmol/L (136-145)
--- NOTE | 2019-10-05 08:25 | PCM.PROGNOTE ---
Patient Problems: Active and Suspected Problems Hemoperitoneum, nontraumatic (Acute) Subjective: HD#2 ruptured ovarian cyst, Acute blood loss anemia. hemoperitoneum Pain controlled with IV narcotic. Tolerating clears. Denies dizziness with ambulation to bathroom at last time up. - Physical Exam Vitals/I&O's: Vital Signs Temp Pulse Resp BP Pulse Ox 98.4 F 88 16 109/67 97 10/05/19 03:01 10/05/19 03:01 10/05/19 03:01 10/05/19 03:01 10/05/19 03:01 Oxygen Delivery Method Room Air Weight: 54.204 kg Body Mass Index (BMI) 21.8 Intake and Output for Last 24 Hours 10/03/19 10/04/19 10/05/19 23:59 23:59 23:59 Intake Total 1200 / 1800 1567.5 / 1567.5 Output Total 350 / 700 650 / 650 Balance 850 / 1100 917.5 / 917.5 General: Alert - appears more pale this am., Oriented x3, Cooperative, No apparent distress HEENT: Atraumatic, EOMI Neck: Supple Abdomen: Soft - tender mostly in lower abdomen. no guarding. Neurological: Cranial nerves II-XII grossly intact Psych/Mental Status: Normal Affect Laboratory Results 10/04/19 11:10: Sodium 142, Potassium 4.4, Chloride 108 H, Carbon Dioxide 24.0, Anion Gap 10, BUN 11, Creatinine 0.86, Estim Creat Clear Calc 68.09, Est GFR (MDRD) Af Amer 93, Est GFR (MDRD) Non-Af 77, BUN/Creatinine Ratio 12.7, Glucose 127 H, Calcium 8.9, Total Bilirubin 0.30, AST 17, ALT 22, Alkaline Phosphatase 56, Total Protein 7.5, Albumin 3.8, Globulin 3.7, Albumin/Globulin Ratio 1.0 10/04/19 11:10: Serum , Qual NEGATIVE 10/04/19 11:10: PT 13.2, INR 1.0 10/04/19 11:10: Lipase 63 L 10/04/19 11:10: Blood Type O POSITIVE, Antibody Screen NEGATIVE 10/04/19 11:10: WBC 14.7 H, RBC 3.74 L, Hgb 10.6 L, Hct 33.3 L, MCV 89.0, MCH 28.3, MCHC 31.8 L, RDW Std Deviation 41.8, RDW Coeff of Hieu 12.8, Plt Count 332, MPV 9.9, Immature Gran % (Auto) 0.600, Neut % (Auto) 88.8 H, Lymph % (Auto) 7.9 L, Crisp % (Auto) 2.4, Eos % (Auto) 0.0, Baso % (Auto) 0.3, Absolute Neuts (auto) 13.1 H, Absolute Lymphs (auto) 1.16, Nucleated RBC % 0 10/04/19 12:35: Urine Color Yellow, Urine Clarity Sl. Cloudy, Urine pH 6.0, Ur Specific [place] 1.020, Urine Protein 30 H, Urine Glucose (UA) Normal, Urine Ketones 50 H, Urine Occult Blood 10 H, Urine Nitrite Positive H, Urine Bilirubin Negative, Urine Urobilinogen 1 H, Ur Leukocyte Esterase 100 H, Urine RBC 0 SEEN, Urine WBC 0-5 SEEN, Ur Squamous Epith Cells 0-5 SEEN, Urine Bacteria 3+, Hyaline Casts 0-5 SEEN, Urine Mucus 1+ 10/04/19 17:30: WBC 11.0, RBC 3.15 L, Hgb 9.0 L, Hct 27.3 L, MCV 86.7, MCH 28.6, MCHC 33.0, RDW Std Deviation 41.1, RDW Coeff of Hieu 12.9, Plt Count 262, MPV 9.9 10/05/19 05:28: WBC 9.4, RBC 2.74 L, Hgb 7.7 L, Hct 24.1 L, MCV 88.0, MCH 28.1, MCHC 32.0, RDW Std Deviation 41.1, RDW Coeff of Hieu 13.0, Plt Count 224, MPV 9.8, Immature Gran % (Auto) 0.400, Neut % (Auto) 73.3 H, Lymph % (Auto) 18.1 L, Crisp % (Auto) 7.7, Eos % (Auto) 0.1, Baso % (Auto) 0.4, Absolute Neuts (auto) 6.9, Absolute Lymphs (auto) 1.71, Nucleated RBC % 0 10/05/19 05:28: Sodium 140, Potassium 3.6, Chloride 106, Carbon Dioxide 26.0, Anion Gap 8, BUN 10, Creatinine 0.71, Estim Creat Clear Calc 82.47, Est GFR (MDRD) Af Amer 116, Est GFR (MDRD) Non-Af 96, BUN/Creatinine Ratio 14.0, Glucose 89, Calcium 8.1 L Current Medications Acetaminophen (Tylenol) 650 mg PO Q6H PRN PRN PRN Reason: Pain Score 1-3/Temp > 100.7 F Last Admin: 10/04/19 18:08 Dose: 650 mg Documented by: Famotidine (Pepcid) 20 mg PO BID ON LICENSE OF [facility] Last Admin: 10/04/19 21:25 Dose: 20 mg Documented by: Ferrous Sulfate (Ferrous Sulfate) 325 mg PO 1200,1700 ON LICENSE OF [facility] Last Admin: 10/04/19 16:01 Dose: 325 mg Documented by: Hydromorphone HCl (Dilaudid Inj) 0.5 mg IV Q2H PRN PRN PRN Reason: Pain Score 4-5/10 Last Admin: 10/04/19 18:59 Dose: 0.5 mg Documented by: Hydromorphone HCl (Dilaudid Inj) 1 mg IV Q2H PRN PRN PRN Reason: Pain Score 6-10/10 Last Admin: 10/05/19 03:04 Dose: 1 mg Documented by: Hyoscyamine Sulfate (Levsin/Sl) 0.125 mg PO Q4H PRN PRN PRN Reason: SPASMS Last Admin: 10/04/19 16:01 Dose: 0.125 mg Documented by: Sodium Chloride () 250 mls @ 15 mls/hr IV .[id number] PRN PRN Reason: Saline Flush Sodium Chloride () 1,000 mls @ 75 mls/hr IV .[id number] ON LICENSE OF [facility] Last Admin: 10/05/19 04:52 Dose: 75 mls/hr Documented by: Ondansetron HCl (Zofran) 4 mg IV Q8H PRN PRN PRN Reason: NAUSEA/VOMITING Last Admin: 10/04/19 20:25 Dose: 4 mg Documented by: Oxycodone HCl (Oxyir) 10 mg PO Q4H PRN PRN PRN Reason: Pain Score 6-10/10 Last Admin: 10/04/19 14:48 Dose: 10 mg Documented by: Sodium Chloride () 10 - 40 ml IV UD PRN PRN Reason: SALINE FLUSH Last Admin: 10/04/19 20:25 Dose: 10 ml Documented by: Medical Necessity - Tobacco Use Smoking Status: Never smoker Assessment/Plan All Active Problems Hemoperitoneum, nontraumatic (Acute) HD#2 ruptured ovarian cyst, Acute blood loss anemia. hemoperitoneum AVSS denies dizziness with up out of bed. Further drift downward of H/H c/w continued slow blood loss Advised surgery to evacuate hemoperitoneum and to inspect for source of bleeding. Possible ovarian cystectomy. Possible oophorectomy . L ovary surgically absent 2/2 torsion years ago. Goal : ovarian preservation. Reviewed R/B/A of surgery and advised may or may not find source of bleeding, but surgery likely to improve pain with evacuation of hemoperitoneum. Will consent for L/S, and surgery as described. Discussed naticipated surgery and postop recovery All questions answered to patient satisfaction. NPO for surgery. OR aware and planning surgery today. Approx noon. Pt will begin Xulane patch after surgery to suppress ovulation.
[2019-10-05] MEDS: HYDROmorphone 0.5 MG/0.5 ML SYRINGE IV (10:48)
--- NOTE | 2019-10-05 11:08 | NURSING ---
report called to Susana in [facility] for pre-op
--- NOTE | 2019-10-05 12:00 | CYST_PTH ---
PATIENT: ELIA HENRY LOC: [facility] U#:[id number] AGE/SX: 39/F ROOM: MS312 RE10/04/[address]: Dr. Gracie Canela MD : 1980 BED: 1 DIS: 10/06/2019 SPEC #: [id number] RECD: 10/05/19 15:52 STATUS: NUVIA HEATHER #: [id number] OPAL: 10/05/19 12:[address]: Gracie Canela DEPT: SURGICAL PATHOLOGY RECD BY: Luke Marks ENTERED: 10/06/19 08:19 SP TYPE: Cyst OTHR DR: No Primary Care Phys Tissues: OVARIAN CYST Procedures: Surgery Specimen Level IV HEADER OPERATION: Evacuation of hematoma, ovarian cystotomy PRE-OP DIAGNOSIS: Neoplasm of right ovary; anemia TISSUE SUBMITTED: Right ovarian cyst MICROSCOPIC DIAGNOSIS Right ovarian cyst, cystotomy: Consistent with fragments of hemorrhagic corpus luteum cyst and blood clots. SJ:traci 10/07/19 MICROSCOPIC DESCRIPTION Slides are reviewed. GROSS DESCRIPTION Received in fixative is one container labeled with the patient's name and designated right ovarian cyst. The specimen consists of multiple fragments of lomeli hemorrhagic soft tissue that in aggregate measure 2.5 x 2.5 x 0.3 cm. The entire specimen is submitted in one cassette. / SUZIE:traci 10/06/19 TC:5 CPT: 28410
--- NOTE | 2019-10-05 12:27 | DCINST_ITS ---
- Discharge Diagnoses Current Active Problems: Current Active and Chronic Problems Hemoperitoneum, nontraumatic (Acute) You will use the following diet at home:: No restrictions Discharge Activity: May not drive while taking narcotic pain medications., May Shower, May Take a Tub Bath Return to work on:: 10/07/19 May resume sexual activity in: No Restrictions Weight Bearing Status: Weight bearing as tolerated Call your doctor if you observe: Fever of 101 or Higher, Inability to have a bowel movement, Using more than one pad per hour, Calf discomfort, Uncontrolled pain Cleanse incision/area with: Soap & Water, Keep Dressing Clean & Dry Additional Instructions: You may take Tylenol 500 mg tabs one or two every 6 hr as needed for milder pain. You may ADD either two Aleve tablets or Three Ibuprofen tablets by mouth every 8 hrs for moderate pain. Take OxyIR 5 mg by mouth every 6 hr for more severe pain. Allergies/Adverse Reactions: Allergies No Known Allergies Allergy (Verified 10/04/19 10:56) Medications to take at Discharge Chromium/Herbal Complex No.238 [Green Tea Caplet] 1 each PO DAILY 08/27/18 Docusate Sodium [Colace] 100 mg PO BID #30 cap 10/05/19 Oxycodone [Oxyir] 5 mg PO Q6H PRN PRN 4 Days #15 tablet 10/05/19 The following prescriptions were given: Docusate Sodium [Colace] 100 mg PO BID #30 cap Transmission Status: Pending to [id number] Oxycodone [Oxyir] 5 mg PO Q6H PRN PRN 4 Days #15 tablet PRN Reason: Mod-Severe Pain (-08/27) Transmission Status: Received by [id number] Primary Care Physician: Care Physician,No Primary [Primary Care Provider] - Test Results: Test results from this visit will be discussed in further detail at your follow- up appointment, if applicable. Please Follow Up With: Gracie Canela MD - [phone] When: in two weeks for postoperative follow up appointment. Proposed Discharge Date: 10/05/19
[2019-10-05] MEDS: Bupiv/Epi 0.25% 30 ML Vial (12:46)
--- NOTE | 2019-10-05 13:41 | PCM.OPRPT ---
Report of Operation Date of Procedure: 10/05/19 Pre-Operative Diagnosis: Hemoperitoneum, abdominal pain, acute blood loss anemia. Hemorrhagic R ovarian cyst Post-Operative Diagnosis: Same Surgery/Procedure Performed:: Laparoscopy, evacuation of hemoperitoneum Description of Surgical Findings:: Hemoperitoneum. 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 The patient was taken back to the Operating room with an IV running. she was positioned on the operating table in dorsal supine position, where she was given general anesthesia. Once asleep she was repositioned to the dorsal lithotomy position with arms tucked at the sides and prepped and draped in the usual sterile fashion. A red Gallo catheter was used to drain the bladder prior to initiating the case. The uterus was anteverted and anteflexed on exam under anesthesia. A sponge stick was placed into the vagina to allow manipulation of the uterus and cervix during the case. Attention was then turned to the anterior abdominal wall where 0.5 % Marcaine with epinephrine was instilled at the suprapubic and infraumbilical skin and at a point midway between in the midline. Skin incisions were then created in the midline at the suprapubic skin and at the infraumbilical skin and midway between the two. While maintaining upward traction of the anterior abdominal wall a Veress needle was inserted through the umbilical incision into the peritoneal cavity. There was free drop of saline, low opening pressure and free flow of CO2 noted. Once the intraabdominal pressure had reached 14 mm of mercury the Veress needle was removed and a bladeless 5 mm trocar was placed through infraumbilical skin incision into the peritoneal cavity. Correct placement was confirmed using the scope. Under direct visualization then with the patient in Trendelenburg position, a bladeless 5 mm trocar was inserted in through suprapubic skin incision into the peritoneal cavity and at a point midway between the infraumbilical and suprapubic trocars. The uterus as anteverted and the left fallopian tube and ovary were surgically absent. The R fallopian tube appeared normal and the right ovary appeared slightly enlarged, mobile, with a small defect at the posterior surface which was bleeding slightly. The posterior cul de sac was filled with blood and clot. This was aspirated and the pelvis irrigated and inspected again. The right ovary was grasped and manipulated to expose the cystic portion and a cystotomy was created. Additional bleeding was noted. The ovary was cauterized to hemostasis. Amber was applied to the ovary. Adequate hemostasis was noted. Attention was then turned to aspiration of blood from the upper abdomen near the liver where additional blood had pooled while the patient was in Trendelenburg position. The blood was aspirated. The patient was placed in reverse Trendelenburg position and additional blood and clot was aspirated from the posterior cul de sac. The ovary was again inspected. Adequate hemostasis was noted. Photos were taken of the uterus and the right ovary . At this point the the procedure was terminated. The pneumoperitoneum was reduced and the instruments and trocars were removed from he the anterior abdominal wall skin. The skin incisions were closed with 4-0 Monocryl in a subcuticular fashion. Dermabond was applied to the skin incisions as an occlusive dressing. The sponge stick was removed from the vagina. The patient was returned to dorsal supine position. She was awakened from general anesthesia. She was transferred to the recovery room bed in stable condition after tolerating the procedure well. Sponge, lap, needle and instrument counts were correct x two. Medications given preop and intraoperatively included: 10 cc of 1/2 % Marcaine with epinephrine --used as a subcutaneous block . For a complete listing of medications given preop and intraop , please see the anesthesia record. - Admit VTE Documentation VTE Present on Admission: No VTE Mechan Device Prophylaxis: SCD's VTE Pharm Prophylaxis ordered?: No
[2019-10-05] MEDS: Lactated Ringers 1,000 ML 100 ML IV (14:54)
[2019-10-05 15:44] LABS: Hematocrit 24.2 % (37-47); Hemoglobin 7.8 g/dL (12.0-15.0); Mean Corp Hgb Conc 32.2 g/dL (32-36); Mean Corpuscular Hgb 28.8 pg (27.0-32.0); Mean Corpuscular Volume 89.3 fL (81-99); Mean Platelet Vol. 10.1 fl (6.2-12.0); Platelet Count 199 K/mm3 (150-450); Red Blood Count 2.71 M/mm3 (4.2-5.4)
[2019-10-05] MEDS: oxyCODONE 5 MG Tablet 10 MG PO (18:13)
[2019-10-05] MEDS: Famotidine 20 MG Tablet PO ×2 (18:13→21:27)
[2019-10-05] MEDS: Ferrous Sulfate 325 MG Tablet PO (18:13)
[2019-10-05 18:50] LABS: Hematocrit 24.4 % (37-47); Hemoglobin 7.9 g/dL (12.0-15.0); Mean Corp Hgb Conc 32.4 g/dL (32-36); Mean Corpuscular Hgb 28.8 pg (27.0-32.0); Mean Corpuscular Volume 89.1 fL (81-99); Mean Platelet Vol. 9.9 fl (6.2-12.0); Platelet Count 211 K/mm3 (150-450); RBC Distribution Width CV 12.9 % (11.6-14.6); RBC Distribution Width SD 41.8 fl (35.1-43.9); Red Blood Count 2.74 M/mm3 (4.2-5.4); White Blood Count 9.4 K/mm3 (4.4-11.0)
[2019-10-06] MEDS: oxyCODONE 5 MG Tablet 10 MG PO (00:16)
[2019-10-06] MEDS: Lactated Ringers 1,000 ML 100 ML IV (00:17)
[2019-10-06 02:32] VITALS: BP 106/59; PULSE 90; RESP 16; TEMP 36.6; O2SAT 96
[2019-10-06] MEDS: Ibuprofen 600 MG Tablet PO ×2 (05:24→12:34)
[2019-10-06 07:03] LABS: Absolute Lymphocyte Count 1.25 X10^3/uL (0.83-4.51); Absolute Neutrophil Count 5.9 X10^3/uL (2.0-7.7); Basophil# 0.02 X10^3/uL; Basophil% 0.3 % (0-1); Eosinophil# 0.11 X10^3/uL; Eosinophils% 1.4 % (0-5); Hematocrit 22.9 % (37-47); Hemoglobin 7.2 g/dL (12.0-15.0); Lymphocyte # 1.25 X10^3/ul (4.0); Lymphocyte % 15.6 % (19-41); Mean Corp Hgb Conc 31.4 g/dL (32-36); Mean Corpuscular Hgb 28.1 pg (27.0-32.0); Mean Corpuscular Volume 89.5 fL (81-99); Mean Platelet Vol. 10.4 fl (6.2-12.0); Monocyte# 0.66 X10^3/uL; Monocyte% 8.3 % (0-10); NRBC Flagged by Analyzer 0 % (0-5); Neutrophil # 5.94 X10^3/uL (2.7-7.7); Neutrophil % 74.1 % (47-70); POSITIVE MORPHOLOGY YES; Platelet Count 209 K/mm3 (150-450); RBC Distribution Width CV 12.7 % (11.6-14.6); RBC Distribution Width SD 41.7 fl (35.1-43.9); Red Blood Count 2.56 M/mm3 (4.2-5.4)
[2019-10-06 07:36] LABS: Differential Indicated SCAN CRITERIA MET
--- NOTE | 2019-10-06 08:29 | PN_ITS ---
Patient Problems: Active and Suspected Problems Hemoperitoneum, nontraumatic (Acute) Subjective: POD#1 Laparoscopy, evacuation of hemoperitoneum. R ovarian cystectotomy, hemorrhagic ovarian cyst. Doing well. Upper abdominal pain is gone. Lower abdomen sore. Taking PO meds well. no N/V. Tolerated a frosty last night. - Physical Exam Vitals/I&O's: Vital Signs Temp Pulse Resp BP Pulse Ox 97.8 F 90 16 106/59 L 96 10/06/19 02:32 10/06/19 02:32 10/06/19 02:32 10/06/19 02:32 10/06/19 02:32 Oxygen Flow Rate (L/min) 3 Oxygen Delivery Method Room Air Weight: 54.204 kg Body Mass Index (BMI) 21.8 Intake and Output for Last 24 Hours 10/04/19 10/05/19 10/06/19 23:59 23:59 23:59 Intake Total 1200 / 1800 4142.5 / 4142.5 1773.33 / 1773.33 Output Total 350 / 700 1690 / 1690 700 / 700 Balance 850 / 1100 2452.5 / 2452.5 1073.33 / 1073.33 General: Alert, Oriented x3, Cooperative, No apparent distress HEENT: Atraumatic, EOMI Neck: Supple Abdomen: Soft - flat minimally sore c/w postop status (lower abdomen) Skin: Incision - L/S incisions with skin glue, CDI. no ecchymosis noted Psych/Mental Status: Normal Affect Laboratory Results 10/05/19 15:30: WBC 10.0, RBC 2.71 L, Hgb 7.8 L, Hct 24.2 L, MCV 89.3, MCH 28.8, MCHC 32.2, RDW Std Deviation 42.0, RDW Coeff of Hieu 13.0, Plt Count 199, MPV 10.1 10/05/19 18:40: WBC 9.4, RBC 2.74 L, Hgb 7.9 L, Hct 24.4 L, MCV 89.1, MCH 28.8, MCHC 32.4, RDW Std Deviation 41.8, RDW Coeff of Hieu 12.9, Plt Count 211, MPV 9.9 10/06/19 05:58: WBC 8.0, RBC 2.56 L, Hgb 7.2 L, Hct 22.9 L, MCV 89.5, MCH 28.1, MCHC 31.4 L, RDW Std Deviation 41.7, RDW Coeff of Hieu 12.7, Plt Count 209, MPV 10.4, Immature Gran % (Auto) 0.300, Neut % (Auto) 74.1 H, Lymph % (Auto) 15.6 L, [place] % (Auto) 8.3, Eos % (Auto) 1.4, Baso % (Auto) 0.3, Absolute Neuts (auto) 5.9, Absolute Lymphs (auto) 1.25, Nucleated RBC % 0 Current Medications Acetaminophen (Tylenol) 650 mg PO Q6H PRN PRN PRN Reason: Pain Score 1-3/Temp > 100.7 F Last Admin: 10/04/19 18:08 Dose: 650 mg Documented by: Famotidine (Pepcid) 20 mg PO BID [facility] Last Admin: 10/05/19 21:27 Dose: 20 mg Documented by: Ferrous Sulfate (Ferrous Sulfate) 325 mg PO 1200,1700 [facility] Last Admin: 10/05/19 18:13 Dose: 325 mg Documented by: Hydromorphone HCl (Dilaudid Inj) 0.5 mg IV Q2H PRN PRN PRN Reason: Pain Score 4-5/10 Last Admin: 10/05/19 10:48 Dose: 0.5 mg Documented by: Hydromorphone HCl (Dilaudid Inj) 1 mg IV Q2H PRN PRN PRN Reason: Pain Score 6-10/10 Last Admin: 10/05/19 20:02 Dose: 1 mg Documented by: Hyoscyamine Sulfate (Levsin/Sl) 0.125 mg PO Q4H PRN PRN PRN Reason: SPASMS Last Admin: 10/04/19 16:01 Dose: 0.125 mg Documented by: Sodium Chloride () 250 mls @ 15 mls/hr IV .[id number] PRN PRN Reason: Saline Flush Lactated Ringer's () 1,000 mls @ 100 mls/hr IV .Q10H [facility] Last Infusion: 10/06/19 05:38 Dose: 100 mls/hr Documented by: Ibuprofen (Motrin) 600 mg PO Q6 [facility] Last Admin: 10/06/19 05:24 Dose: 600 mg Documented by: Ondansetron HCl (Zofran) 4 mg IV Q8H PRN PRN PRN Reason: NAUSEA/VOMITING Last Admin: 10/04/19 20:25 Dose: 4 mg Documented by: Oxycodone HCl (Oxyir) 10 mg PO Q4H PRN PRN PRN Reason: Pain Score 6-10/10 Last Admin: 10/06/19 00:16 Dose: 10 mg Documented by: Sodium Chloride () 10 - 40 ml IV UD PRN PRN Reason: SALINE FLUSH Last Admin: 10/04/19 20:25 Dose: 10 ml Documented by: Medical Necessity - Tobacco Use Smoking Status: Never smoker Assessment/Plan All Active Problems Hemoperitoneum, nontraumatic (Acute) HD#3 ruptured ovarian cyst, Acute blood loss anemia. hemoperitoneum POD#1 L/S evacuation of hemoperitoneum, R ovarian cystotomy with cautery and Amber placement for hemostasis. AVSS denies dizziness with up out of bed. H/H stable. Pain improved after surgery, upper abdomen pain gone. Pt will begin Xulane patch after onset of next period to suppress ovulation. Dischg home today. Meds sent to pharmacy on record as preferred. RTO in 2 wk for postop incision check.
[2019-10-06] MEDS: Famotidine 20 MG Tablet PO (08:56)
[2019-10-06 10:12] VITALS: BP 100/69; PULSE 98; RESP 16; TEMP 36.3; O2SAT 95
[2019-10-06] MEDS: Ferrous Sulfate 325 MG Tablet PO (12:34)
== END 2019-10-06 13:05 | disposition home or self-care (01) ==
LOC: ED 11:38 → MS3 13:41
PROVIDERS: Admitting Provider Obstetrics & Gynecology; Emergency Provider Emergency Medicine; Referring Provider Obstetrics & Gynecology; Visit Provider Obstetrics & Gynecology
PROC: (CPT 58662; principal; 2019-10-05 11:45)
DX: K66.1 Hemoperitoneum (principal); N83.201 Unspecified ovarian cyst, right side; D62 Acute posthemorrhagic anemia
CPT/HCPCS: 00840; 58662; 36415; 74176; 80048; 80053; 81001; 83690; 84703; 85025; 85027; 85610; 86850; 86900; 86901; 88305; 93005; 96361; 96374; 96375; 96376; 99218; 99285; J7030; J7120; A4216; G0378; J2405